=== PATIENT | male | born 1945 | race Caucasian/White ===

== ENCOUNTER 2022-04-07 15:25 | Outpatient (CLI) | payer MEDICARE, SELFPAY ==
--- NOTE | ~2022-04-07 | CT_ITS ---
EXAMINATION: CT LE RT wo con DATE: 04/07/2022 16:26 INDICATION: Right knee pain and osteoarthritis. Preoperative planning TECHNIQUE: High resolution computed tomography (CT) of the right lower limb from the hip through the foot was performed without intravenous contrast. Additional sagittal and coronal reconstructions were performed. Automated exposure control and iterative reconstruction technique were employed. The dose -length product was 1934.54 mGy-cm. COMPARISON: 01/08/2022 FINDINGS: Bone alignment is normal. Moderate osteoarthritis at the right hip with subarticular cystic changes a nd moderate size marginal osteophytes along the rim of the acetabulum. Severe medial compartment pred ominant osteoarthritis at the right knee. Small right knee joint effusion. A few loose osteochondral bodies within the popliteal recess. Additional mild to moderate polyarticular osteoarthritis at the r ight foot and ankle. Prominent enthesophytes throughout the bilateral feet and ankles including moder ate-sized bilateral Achilles and plantar calcaneal spurs. Large region of fatty atrophy of the centra l right rectus femoris muscle likely sequela of chronic insult. Small Guillen's cyst. Moderate fatty at rophy of the intrinsic musculature of the bilateral feet. Visualized portion of the pelvis is unremar kable. No pathologically enlarged pelvic or inguinal lymphadenopathy. IMPRESSION: 1. Severe medial compartment predominant tricompartmental osteoarthritis at the right knee. Reviewed, dictated and finalized at location A. DISPENSER
[2022-04-07 16:07] LABS: Hematocrit 44.3 % (42.0-52.0)
[2022-04-07 16:20] LABS: Urine Cotinine NEGATIVE
[2022-04-07 16:23] LABS: Albumin Level 4.2 g/dL (3.5-5.1); Estimated Glomerular Filt Rate > 60; Glucose 124 mg/dL (65-110)
[2022-04-07 17:07] LABS: Hemoglobin A1C 6.1 % (<5.7)
== END 2022-04-07 15:26 | disposition home or self-care (01) ==
LOC: ANHLAB 15:41
PROVIDERS: Visit Provider Orthopaedic Surgery
DX: Z01.818 Encounter for other preprocedural examination (principal); M17.11 Unilateral primary osteoarthritis, right knee
CPT/HCPCS: 73700; 80307; 82040; 82565; 82947; 83036; 85014; 85018

== ENCOUNTER 2022-04-15 14:18 | Outpatient (CLI) | payer MEDICARE, SELFPAY ==
--- NOTE | 2022-04-15 14:33 | ECG_ITS ---
Measurements Intervals Tate Rate: 82 P: 67 SC: 165 QRS: 23 QRSD: 106 T: 55 QT: 375 QTc: 439 Interpretive Statements SINUS RHYTHM NORMAL ECG NO PREVIOUS ECG AVAILABLE FOR COMPARISON Electronically Signed On 04-15-2022 15:14:02 CLIENT EXECUTIVE by Shree Trent D.O.
== END 2022-04-15 14:19 | disposition home or self-care (01) ==
PROVIDERS: Visit Provider Orthopaedic Surgery
DX: M17.11 Unilateral primary osteoarthritis, right knee (principal); Z01.818 Encounter for other preprocedural examination
CPT/HCPCS: 93005

== ENCOUNTER 2022-05-28 13:40 | Outpatient (CLI) | payer MEDICARE, SELFPAY ==
[2022-05-28 15:09] LABS: Basophils Absolute Auto 0.1 K/mm3 (0.0-0.1); Basophils Percent Auto 1.3 % (0.2-1.2); Eosinophils Absolute Auto 0.3 K/mm3 (0-0.3); Eosinophils Percent Auto 3.3 % (0-4.4); Hematocrit 42.8 % (42.0-52.0); Hemoglobin 14.3 g/dL (14.0-18.0); Immature Granulocyte Absolute 0.04 K/mm3 (0.00-0.031); Immature Granulocyte Percent A 0.4 % (0-0.5); Lymphocytes Absolute Auto 3.36 K/mm3 (0.9-3.2); Lymphocytes Percent Auto 32.9 % (18.3-44.2); Mean Corpuscular HGB Conc 33.4 g/dl (32-36); Mean Corpuscular Hemoglobin 30.8 pg (26-34); Mean Platelet Volume 9.9 fl (7.4-10.4); Monocytes Absolute Auto 0.8 K/mm3 (0.1-0.6); Neutrophils Absolute Auto 5.5 K/mm3 (1.3-6.7); Neutrophils Percent Auto 54.1 % (45.5-73.1); Platelet Count Result 324 k/mm3 (150-375); Red Blood Count 4.65 M/mm3 (4.6-6.20); Red Cell Distribution Width 13.6 % (11.5-14.5); White Blood Count 10.2 K/mm3 (4.5-10.0)
[2022-05-28 15:24] LABS: Estimated Glomerular Filt Rate > 60; Glucose 103 mg/dL (65-110)
[2022-05-28 15:31] LABS: Urine Cotinine NEGATIVE
[2022-05-28 15:37] LABS: Hemoglobin A1C 6.1 % (<5.7)
== END 2022-05-28 13:41 | disposition home or self-care (01) ==
PROVIDERS: Visit Provider Orthopaedic Surgery
DX: Z01.818 Encounter for other preprocedural examination (principal); M17.11 Unilateral primary osteoarthritis, right knee
CPT/HCPCS: 80307; 82040; 82565; 82947; 83036; 85025; 87081

== ENCOUNTER 2022-06-22 00:35 | Day surgery (SDC) | payer MEDICARE, SELFPAY ==
--- NOTE | 2022-05-28 13:42 | PC.NURSE ---
PRE-OP INSTRUCTIONS, PLEASE READ CAREFULLY Report to the Outpatient Waiting Room, entrance under the green pavilion located off [facility], at time _1000_ on date _06/22/22_. Planned Procedure Time: _1200_. PACK A SMALL OVERNIGHT BAG AND LEAVE IN THE CAR Time changes happen often and if your time is changed the preop area will call you the afternoon before. - You and your visitor will be asked to self-screen and do not enter if you have any COVID symptoms. - Only one visitor is requested with a max of two and NO children visitors are allowed at this time. - The patient visitor may be requested to leave or wait in car when not with patient due to distancing restrictions. - A mask is REQUIRED within the hospital. -VISITING HOURS 8AM-8PM Patients may have clear liquids (water, carbonated beverages, clear teas, apple juice) until 3 hours prior to surgery (0900 AM) with a maximum of 20 ounces. - No food from midnight until time of surgery Take the following medications with a SIP of water the morning of surgery: _NONE_ Medications to discontinue per DR. SOLIZ - _ASPIRIN, ADVIL (IBUPROFEN) 7 DAYS PRIOR TO SURGERY, Date to take last dose 06/14/22_ Medications to discontinue per ANESTHESIA - _VITAMINS/SUPPLEMENTS 3 DAYS PRIOR TO SURGERY, Date to take last dose 06/18/22_ Please no make-up, nail maltese, hairspray, perfume, deodorant, or body powder the day of surgery. No jewelry (including any body piercings) or valuables the day of surgery, leave them at home. Please take a shower or bath the night before, or the morning of, surgery with an antibacterial soap. Wear comfortable, loose fitting clothing. - Jewelry must be removed prior to entering the operating room. Rings and piercings that are not removed may be cut off. - The hospital will not accept responsibility for valuables. - Please leave all valuables, including medications, at home the day of surgery. If you are going home after surgery, a licensed driver utility worker must drive you home. - NO public transportation without another adult if you receive anesthesia. - We recommend that an adult stay with you for 24 hours following discharge. - We also recommend that you do not drive, make important decision, drink alcoholic beverages, or take any drugs that were not prescribed by your health care provider for at least 24 hours after your discharge time. Follow any additional instructions given to you from your surgeon. TOTAL JOINT CLASS 06/03/22 @ [address] [place] [address] - LOWER LEVEL If you or anyone in your household have experienced Covid symptoms in the past week, please notify your surgeon or the nurse liaison at the phone number below for possible testing. Instructions given to _PATIENT_and asked if any additional questions and then verbalized understanding. Patient advised to call surgeon office or pre surgery nurse liaison [phone] if any additional questions.
[2022-05-28 14:11] VITALS: BP 126/80; PULSE 90; RESP 20; TEMP 36.8; O2SAT 97; BMI 34.2
[2022-06-22] VITALS (15 sets, daily range): BP systolic 111–156; BP diastolic 61–91; PULSE 80–96; RESP 10–20; TEMP 36.2–37.3; O2SAT 94–100
--- NOTE | ~2022-06-22 | XR_ITS ---
EXAMINATION: XR knee RT 2V DATE: 06/22/2022 15:20 INDICATION: Postoperative evaluation following right total knee arthroplasty. TECHNIQUE: Anteroposterior and lateral views of the right knee were obtained. COMPARISON: 04/07/2022 FINDINGS: Right total knee arthroplasty with patellar resurfacing appears well seated and in near anatomic alig nment. No fractures identified. Expected postoperative subcutaneous and intra-articular gas. IMPRESSION: 1. Right total knee arthroplasty, negative for postoperative purposes. Reviewed, dictated and finalized at location B. R PIPE OFFBEARER
--- NOTE | 2022-06-22 08:14 | WPDANESEPPF ---
Anes - Initial Pre Proc Eval Procedure: Operation Date: 06/22/22 12:00 Proposed Procedures p Custom Right Total Knee Arthroplasty - Christiano Cruz MD Date/Time: 06/22/22 08:14 Surgeon: Christiano Cruz MD Pre Op Diagnosis: Prim O A Rt Knee Patient Data Age: 76 Gender: M Height: 1.85 m Weight: 117.5 kg Last Vital Signs Temp 36.8 C 05/28/22 14:11 Pulse 90 05/28/22 14:11 Resp 20 05/28/22 14:11 BP 126/80 05/28/22 14:11 Pulse Ox 97 05/28/22 14:11 O2 Del Method Room Air 05/28/22 14:11 Allergies Allergy/AdvReac Type Severity Reaction Status Date / Time No Known Allergies Allergy Unverified 05/28/22 15:26 Home Medications Medication Instructions Recorded Confirmed Type allopurinol 100 mg tablet 100 mg PO DAILY 11/18/21 05/28/22 History pravastatin 40 mg tablet 40 mg PO DAILY 11/18/21 05/28/22 History methylprednisolone 4 mg tablets in See Rx Instructions PO PER PKG DIR 04/03/22 05/28/22 Rx a dose pack (Medrol (Santosh)) #21 ea omega 5-jet-qxg-fish oil 60 mg-90 1 cap PO DAILY 04/03/22 05/28/22 History mg-500 mg capsule (Fish Oil) Chondro Flx 20 mg DAILY 05/28/22 05/28/22 History aspirin 325 mg tablet 325 mg PO DAILY 05/28/22 05/28/22 History cholecalciferol (vitamin D3) 25 25 mcg PO DAILY 05/28/22 05/28/22 History mcg (1,000 unit) capsule ibuprofen 200 mg tablet (Advil) 400 mg PO Q6H PRN Pain 05/28/22 05/28/22 History ECG: Date of Service: 04/15/22 Procedure(s): CA 12 lead EKG Accession Number(s): [id number] cc: ~ ? Measurements Intervals? [place]? Rate: ? 82 ? P:? 67 MA: ? 165? QRS:? 23 QRSD: ? 106? T:? 55 QT: ? 375? QTc:? 439? Interpretive Statements SINUS RHYTHM NORMAL ECG NO PREVIOUS ECG AVAILABLE FOR COMPARISON Electronically Signed On 04-15-2022 15:14:02 TIE SAWYER by Shree Trent D.O. Patient hx anesthesia problems: none Family hx anesthesia problems: none Results Review: All pre-operative results and documents have been reviewed as part of the pre-operative evaluation. [facility] Past Medical History Medical History (Updated 06/22/22 @ 08:15 by Rogelio Leavitt MD) Hypercholesterolemia Lumbar pain Obesity Primary osteoarthritis of right knee Surgical History Surgical History History of hernia surgery (~03/2016) Family History Family History Unknown Cancer Social History Social History (Updated 04/03/22 @ 09:52 by Paola Bradley MA) Smoking status: Former smoker Tobacco type: cigarettes Second hand tobacco smoke exposure: No Additional smoking assessment comments: STATES SMOKED SOME AGE 22 WHILE IN Alcohol intake: current Drinks per week: 4 Alcohol use details: Frequency Substance use: never Substance use type: does not use Lack of Transportation: No Lack of Food: Never True Current Housing: I Have Housing Concerned About Future Housing: No Difficulty Paying Gas/Electric Bills: No Difficulty Paying for Meds: No Currently Unemployed: No Education: High School Diploma/GED Difficulty w/ Childcare or Family Care: No Living arrangements: alone Spiritual care concerns: No Anes - Eval Final PreProcedure Day of Procedure 06/22/22 08:14 Patient weight: obese Heart: regular rate and rhythm Lungs: clear to auscultation and normal air movement Airway: Mallampati scale class II Neurological: alert and oriented Last oral intake: >/= 8 hours ASA classification: III Emergent: no Anesthetic plan: proceed Anesthesia type and monitoring: general LMA Results Review: All pre-operative results and docu
--- NOTE | 2022-06-22 10:23 | WPDANESPNB ---
Anes - Peripheral Nerve Block Date/Time: 06/22/22 10:23 I have discussed with the patient/family/POA the placement of a peripheral nerve block for post-operative pain management, including associated risks, benefits, complications, and side effects. Alternative methods of post-operative analgesia were detailed. Questions were solicited and answers provided to the satisfaction of the patient/family/POA. Time-Out: A pre-procedural Time-Out was completed immediately before starting the procedure and confirmed: Patient Identification, Site, Procedure, Patient Position and the Availability of Requisite Equipment. Clinical Indications: Acute post-operative pain management requested by the operative surgeon. Nerve Block Insertion Note Anes-nerve block: adductor canal right Patient position: supine Skin prep: chlorhexidine Needle: 22 gauge, stimulating, insulated echogenic needle. Needle length: 80 mm Technique: ultrasound Technique comment: in plane Injectate: bupivacaine 0.25% with epi 5 mcg/ml (30cc) Observations: tolerated well Complications: none Procedure start time:: 1210 Procedure end time:: 1215
--- NOTE | 2022-06-22 10:25 | SUR.PREOP ---
[address] dixon about scab to right knee,pt states ingrown hair which appeared 06/21/22,popped today. dr dixon states to proceed with surgery.
[2022-06-22] MEDS: ACETAMINOPHEN 500 MG TABLET 1000 MG PO (10:52)
[2022-06-22] MEDS: LACTATED RINGERS 1,000 ML 30 ML IV CONT ×2 (10:54→14:56)
[2022-06-22] MEDS: TRANEXAMIC ACID 1,000MG/ISO100 1,000 MG/100 ML BAG 200 MG IVPB (10:56)
--- NOTE | 2022-06-22 11:19 | SUR.PREOP ---
PT AWARE SURGEON DELAYED UNTIL 1215.
--- NOTE | 2022-06-22 12:11 | WPDHPUPDATE1 ---
History and Physical Update Update Date/Time: 06/22/22 12:11 History and Physical has been reviewed, including an updated exam of the patient. There are NO changes in the patient's condition. Risks, benefits, and alternatives have been discussed and questions answered. Patient agrees to proceed with procedure.
[2022-06-22] MEDS: ceFAZolin 2 GM/D5W 50 ML 2 GM/50 ML BAG IVPB ×2 (12:23→20:12)
[2022-06-22] MEDS: GENTAMICIN BONE CEMENT REFOBACIN 1 EACH TOPICAL (13:00)
[2022-06-22] MEDS: SODIUM CHLORIDE 0.9% IV 50 ML, TRANEXAMIC ACID 1,000 MG TOPICAL (14:32)
[2022-06-22] MEDS: fentaNYL CITRATE INJ (*CRX) 100 MCG/2 ML VIAL 25 MCG IV PUSH ×3 (15:05→17:22)
--- NOTE | 2022-06-22 15:47 | SUR.PHASEI ---
Simple mask removed at 9905.
--- NOTE | 2022-06-22 16:27 | SUR.PHASEI ---
Addendum entered by Yaquelin Andrews RN 06/22/22 17:00: 1605 Original Note: !605: Patient meets PACU discharge criteria, unit bed unavailable at this time. Patient placed in extended recovery status.
[2022-06-22] MEDS: ONDANSETRON INJ 4 MG/2 ML VIAL IV PUSH ×2 (16:40→19:09)
--- NOTE | 2022-06-22 18:02 | P.OP_ITS ---
Procedure Note - Detailed Date of Procedure 06/22/22 Pre-op Diagnosis Prim O A Rt Knee Post-op Diagnosis Same Procedure Performed Total knee arthroplasty, right Surgeon Christiano Cruz MD Keying Machine Operator Shana Langley PA-C Anesthesia General and Regional (Subsartorial block.) Findings Good bone quality. Mild medial release. Description of Procedure Preoperative antibiotics were given. The limb was prepped and draped in the usual sterile fashion with a well-padded tourniquet high on the thigh. The limb was exsanguinated and the tourniquet inflated to 300 mmHg. A longitudinal incision was created just medial to the patella. A trivector approach to the knee was performed. Arthrotomy was taken down through the joint capsule. No significant releases were initially taken. The femur was exposed and the F1 jig was applied. The coring tool was used to remove the cartilage for the F2 jig to sit flush with the bone. The jig was pinned and the distal cut carefully taken. Caliper measurements confirmed appropriate bony resections according to the preoperative templated plan. The F4 cutting jig for the femur was applied, at the standard rotation. The AP and anterior chamfer cuts were taken. The F5 jig was applied and the posterior chamfer cuts were taken. The tibia was prepared using the T1 jig, after removing cartilage for the jig contact points. Proper alignment was checked with the alignment karyna. The tibia was cut using the T1u guide. Gap balancing was performed. Gap measurements were taken and the knee was trialed. Excellent alignment and soft tissue balancing was confirmed. The posterior cruciate ligament was resected. The patella was cut for resurfacing. Three lug holes were drilled. Meniscal remnants were removed. The trial components were assembled. Excellent range of motion and proper soft tissue balancing were confirmed throughout the full range of motion. Patellar tracking was excellent. The knee was copiously irrigated periodically throughout the procedure. The real implants were cemented into position. Excess cement was carefully removed. The wound was closed in layers with interrupted #1 Vicryl suture, 2-0 strata fix suture, 0 strata fix suture, 2-0 strata fix suture. Steri-Strips placed on the skin with the knee flexed. Sterile bulky dressing applied. The patient was brought to the recovery room in stable condition. There were no complications. Physician health center assistant, Shana Pisarski, PA-C, required for surgery; including patient positioning, draping, tissue retraction, maintaining instrument position, wound closure, and dressing placement. Implants Conformis imprint total knee arthroplasty. Cemented. Posterior stabilized. 10mm insert. 41 mm oval patella. Estimated Blood Loss -100.0 Drains No Complications No immediate complications Condition Stable Disposition PACU [facility] Billing Surgery - Charge Forward: Surgery Billing
--- NOTE | 2022-06-22 18:10 | ADMGEN ---
This patient, Rex Petersen, was admitted to Medical Room 346-01. Patient/family oriented to hospital policies and general routines including ID bracelet, bed and alarms, visiting hours, pain management, procedures, bathroom and other care routines, personal items, smoking policy, room service/diet, and visiting hours. Information on how to activate the Rapid Response Team has been discussed. Patient/Family are encouraged to report perceived risks to care and to ask questions if they do not understand what they are told or what they should do.
[2022-06-22] MEDS: SODIUM CHLORIDE 0.9% IV 1,000 ML 125 ML IV CONT (19:08)
[2022-06-22] MEDS: SENNA/DOCUSATE SODIUM TABLET 2 TAB PO (20:11)
[2022-06-22] MEDS: FAMOTIDINE 20 MG TABLET PO (20:12)
[2022-06-23] MEDS: ONDANSETRON INJ 4 MG/2 ML VIAL IV PUSH ×3 (00:47→13:24)
--- NOTE | 2022-06-23 01:00 | PC.NURSE ---
Pt stood wt stood weight bearing at side of bed
[2022-06-23 03:31] VITALS: BP 128/80; PULSE 78; RESP 20; TEMP 36.7; O2SAT 100
[2022-06-23] MEDS: ceFAZolin 2 GM/D5W 50 ML 2 GM/50 ML BAG IVPB ×2 (04:02→13:24)
[2022-06-23 06:00] LABS: Basophils Absolute Auto 0.1 K/mm3 (0.0-0.1); Basophils Percent Auto 0.8 % (0.2-1.2); Eosinophils Absolute Auto 0.2 K/mm3 (0-0.3); Eosinophils Percent Auto 1.5 % (0-4.4); Hematocrit 36.2 % (42.0-52.0); Hemoglobin 11.8 g/dL (14.0-18.0); Immature Granulocyte Absolute 0.04 K/mm3 (0.00-0.031); Immature Granulocyte Percent A 0.4 % (0-0.5); Lymphocytes Absolute Auto 2.32 K/mm3 (0.9-3.2); Lymphocytes Percent Auto 21.4 % (18.3-44.2); Mean Corpuscular HGB Conc 32.6 g/dl (32-36); Mean Corpuscular Hemoglobin 30.4 pg (26-34); Mean Corpuscular Volume 93.3 fl (80-100); Monocytes Absolute Auto 0.9 K/mm3 (0.1-0.6); Neutrophils Absolute Auto 7.4 K/mm3 (1.3-6.7); Neutrophils Percent Auto 67.9 % (45.5-73.1); Platelet Count Result 218 k/mm3 (150-375); Red Blood Count 3.88 M/mm3 (4.6-6.20); Red Cell Distribution Width 13.6 % (11.5-14.5); White Blood Count 10.8 K/mm3 (4.5-10.0)
[2022-06-23 06:09] LABS: Anion Gap 4 mmol/L (8-16); Blood Urea Nitrogen 12 mg/dL (9-20); Calcium 7.9 mg/dL (8.4-10.2); Carbon Dioxide 29 mmol/L (22-30); Chloride 105 mmol/L (98-107); Estimated CRCL calculation 91 ml/min; Estimated Glomerular Filt Rate > 60; Glucose 104 mg/dL (65-110); Sodium 138 mmol/L (137-145)
[2022-06-23 07:31] VITALS: BP 122/74; PULSE 74; RESP 18; TEMP 36.8; O2SAT 99
[2022-06-23] MEDS: FAMOTIDINE 20 MG TABLET PO (08:16)
[2022-06-23] MEDS: SENNA/DOCUSATE SODIUM TABLET 2 TAB PO (08:16)
[2022-06-23] MEDS: ASPIRIN 325 MG TABLET PO (08:17)
[2022-06-23] MEDS: allopurinoL 100 MG TABLET PO (08:17)
[2022-06-23 09:20] VITALS: BP 126/80; PULSE 66; RESP 18; TEMP 36.6; O2SAT 98
--- NOTE | 2022-06-23 09:34 | WPDANESPN ---
Anes - Prog Note Post-Op Date/Time: 06/23/22 09:34 Cardiovascular status: normal Respiratory status: normal Airway patency: baseline Mental status: baseline Post-Op hydration status: normal Vital Signs: Last Vital Signs Temp 36.6 C 06/23/22 09:20 Pulse 66 06/23/22 09:20 Resp 18 06/23/22 09:20 BP 126/80 06/23/22 09:20 Pulse Ox 98 06/23/22 09:20 O2 Del Method Room Air 06/22/22 20:00 O2 Flow Rate 6 06/22/22 15:40 Pain Score (VAS): 07/10 I/O: Intake & Output 06/22/22 06/23/22 06/23/22 23:59 07:59 15:59 Intake Total 950 100 Balance 950 100 Laboratory Tests 06/23/22 05:43 06/23/22 05:43 06/22/22 06/23/22 06/23/22 10:23 05:43 05:43 WBC 10.8 H RBC 3.88 L Hgb 11.8 L Hct 36.2 L MCV 93.3 MCH 30.4 MCHC 32.6 RDW 13.6 Plt Count 218 MPV 10.0 Immature Gran % (Auto) 0.4 Neut % (Auto) 67.9 Lymph % (Auto) 21.4 Cherry % (Auto) 8.0 Eos % (Auto) 1.5 Baso % (Auto) 0.8 Lymph # (Auto) 2.32 Cherry # (Auto) 0.9 H Eos # (Auto) 0.2 Baso # (Auto) 0.1 Abs Immat Gran (auto) 0.04 H Absolute Neuts (auto) 7.4 H Absolute Nucleated RBC 0.0 Nucleated RBC % 0.0 Sodium 138 Potassium 4.0 Chloride 105 Carbon Dioxide 29 Anion Gap 4 L BUN 12 Creatinine 0.80 Estim Creat Clear Calc 91 Estimated GFR > 60 Glucose 104 Calcium 7.9 L Blood Type A Negative Antibody Screen Negative Post-procedural complaints: nausea (moderate post op, improved today) Patient Feedback: Patient satisfied with anesthetic care.
--- NOTE | 2022-06-23 09:34 | PM.DS ---
DS: Admitting Diagnosis Discharge Date 06/23/21 Admitting Diagnosis OA knee Right DS: Discharge Diagnosis Discharge Diagnosis (1) Status post total right knee replacement: Code(s): Z96.651 - Presence of right artificial knee joint Status: Acute Assessment and Plan: Postop day 1: Right total knee arthroplasty. Patient tolerated procedure well. No complications. Pain manageable with pain medication. No numbness or tingling. We had a lengthy discussion regarding postoperative wound care, limitations, expectations, and exercises. Patient shows good understanding. He has had initial physical therapy and is tolerating it well. DVT prophylaxis: continue full dose aspirin. Pain medication: Percocet. Antibiotic: Keflex Patient has followup appointment with Dr. Cruz in 3 weeks. DS: Summary Hospital Course Reason for hospitalization: Total knee arthroplasty Hospital Course: Patient tolerated procedure well. Has had initial PT/OT. No complications. Pain well managed. Status at Discharge Functional status at discharge: uses cane/walker Overall status at discharge: patient is progressing back to baseline Time Spent with Patient Time attestation: Total time spent providing and/or coordinating discharge services: Exam Narrative: Overweight 76 y.o Male. Resting comfortably in chair. No acute distress. A&O x3. Wearing compression socks bilaterally. Dressing intact with no drainage. Moderate swelling. No ecchymosis. No erythema. No hematoma. Good early range of motion. Calf nontender. Neurologic status intact. No varicosities. Distal pulses palpable. DS: Data Data Completed and Pending Labs on day of discharge: Labs from last 24 hours 06/23/22 06/23/22 06/22/22 05:43 05:43 10:23 WBC 10.8 H RBC 3.88 L Hgb 11.8 L Hct 36.2 L MCV 93.3 MCH 30.4 MCHC 32.6 RDW 13.6 Plt Count 218 MPV 10.0 Immature Gran % (Auto) 0.4 Neut % (Auto) 67.9 Lymph % (Auto) 21.4 [place] % (Auto) 8.0 Eos % (Auto) 1.5 Baso % (Auto) 0.8 Lymph # (Auto) 2.32 [place] # (Auto) 0.9 H Eos # (Auto) 0.2 Baso # (Auto) 0.1 Abs Immat Gran (auto) 0.04 H Absolute Neuts (auto) 7.4 H Absolute Nucleated RBC 0.0 Nucleated RBC % 0.0 Sodium 138 Potassium 4.0 Chloride 105 Carbon Dioxide 29 Anion Gap 4 L BUN 12 Creatinine 0.80 Estim Creat Clear Calc 91 Estimated GFR > 60 Glucose 104 Calcium 7.9 L Blood Type A Negative Antibody Screen Negative Discharge Plan Discharge Patient Disposition: Home, Self-Care Discharge Instructions: See green instruction sheets Stand Alone Forms: General Discharge Instructions Follow-up/Referrals: Shana Langley PA [Physician Electrical Prospecting Engineer] - Discharge Medications: New oxycodone-acetaminophen 5-325 mg tablet 1 - 2 tablet PO Q4-6H MDD 6 PRN (Reason: pain) Qty: 30 0RF cephalexin 500 mg capsule 500 mg PO BID 10 Days Qty: 20 0RF Rx Instructions: Take twice a day for 10 days. Continued omega 2-bfg-gwe-fish oil [Fish Oil] 60-90-500 mg capsule 1 cap PO DAILY allopurinol 100 mg tablet 100 mg PO DAILY pravastatin 40 mg tablet 40 mg PO DAILY aspirin 325 mg Tablet 325 mg PO DAILY ibuprofen [Advil] 200 mg Tablet 400 mg PO Q6H PRN (Reason: Pain) cholecalciferol (vitamin D3) 25 mcg (1,000 unit) Capsule 25 mcg PO DAILY Chondro Flx 20 mg DAILY
--- NOTE | 2022-06-23 10:01 | PCOTNOTE ---
Attempted to see. Pt. nauseous and light headed, request return later. Nursing aware.
[2022-06-23] MEDS: polyethylene glycoL 3350 17 GM POWD.PACK PO (10:12)
[2022-06-23] MEDS: PRAVASTATIN SODIUM 20 MG TABLET 40 MG PO (10:12)
[2022-06-23] MEDS: predniSONE 5 MG TABLET PO (10:12)
[2022-06-23 11:31] VITALS: BP 116/86; PULSE 75; RESP 18; TEMP 36.8; O2SAT 97
== END 2022-06-23 16:00 | disposition home or self-care (01) ==
LOC: ANHSURGERY 14:09 → ANH3MED 17:48
PROVIDERS: Physician Assistant Surgical; Visit Provider Orthopaedic Surgery
PROC: (CPT 27447; principal; 2022-06-22 12:00)
DX: M17.11 Unilateral primary osteoarthritis, right knee (principal); G89.18 Other acute postprocedural pain; E78.00 Pure hypercholesterolemia, unspecified; Z79.82 Long term (current) use of aspirin; E66.9 Obesity, unspecified; Z68.32 Body mass index [BMI] 32.0-32.9, adult
CPT/HCPCS: 27447; 64447; 36415; 73560; 80048; 85025; 86850; 86900; 86901; 97110; 97116; 97161; 97165; 97530; A9270; C1713; C1776; J0131; J0171; J0690; J1100; J1170; J1885; J2250; J2270; J2370; J2405; J2704; J2795; J3010; J7030; J7120; J7512

== ENCOUNTER 2024-02-25 08:43 | Outpatient (CLI) | payer MEDICARE, SELFPAY ==
--- NOTE | ~2024-02-25 | XR_ITS ---
XR knee LT min 4V 02/25/2024 09:14 Indication: Left knee pain Procedure: 5 views left knee Comparison: 02/05/2023 Findings: There is severe osteoarthritis of the left knee with varus angulation. No fracture or traum atic malalignment. There is moderate joint effusion. Impression: 1: Severe osteoarthritis of the left knee with varus angulation. 2: Moderate joint effusion. Reviewed, dictated and finalized at location B. Impression: 1: Severe osteoarthritis of the left knee with varus angulation. 2: Moderate joint effusion.
== END 2024-02-25 08:44 | disposition home or self-care (01) ==
LOC: ANHIMG 08:51
PROVIDERS: Visit Provider Orthopaedic Surgery
DX: M17.12 Unilateral primary osteoarthritis, left knee (principal); M25.462 Effusion, left knee; M21.162 Varus deformity, not elsewhere classified, left knee
CPT/HCPCS: 73564

== ENCOUNTER 2024-05-09 12:12 | Outpatient (CLI) | payer MEDICARE, SELFPAY ==
[2024-05-09 12:54] LABS: Hematocrit 43.6 % (42.0-52.0); Hemoglobin 14.4 g/dL (14.0-18.0)
[2024-05-09 13:03] LABS: Albumin Level 4.2 g/dL (3.5-5.1); Estimated Glomerular Filt Rate > 60; Glucose 111 mg/dL (65-110)
== END 2024-05-09 12:13 | disposition home or self-care (01) ==
PROVIDERS: Visit Provider Orthopaedic Surgery
DX: M17.12 Unilateral primary osteoarthritis, left knee (principal); E78.00 Pure hypercholesterolemia, unspecified
CPT/HCPCS: 36415; 82040; 82565; 82947; 85014; 85018

== ENCOUNTER 2024-07-25 00:23 | Day surgery (SDC) | payer MEDICARE, SELFPAY ==
--- NOTE | 2024-07-03 09:55 | PC.NURSE ---
Report to the Outpatient Waiting Room, entrance under the green pavilion located off [facility], at time 6 am on date _07/25/24 . Planned Procedure Time: _7:30 am .? Time changes happen often and if your time is changed the preop area will call you the afternoon before. - You and your visitor will be asked to self-screen and do not enter if you have any COVID symptoms. Please call surgeon if you need to reschedule. - A mask is optional within the hospital at this time. Patients may have clear liquids (water, carbonated beverages, clear teas, apple juice) until 3 hours prior to surgery( 4:30 AM) with a maximum of 20 ounces. - No food from midnight until time of surgery and no smoking. This includes no chewing gum, candy or mints. Take only the following medications with a SIP of water on the morning of surgery: ___AMLODIPINE DO NOT STOP ANY OF YOUR OTHER PRESCRIPTION MEDICATIONS PRIOR TO SURGERY EXCEPT THE FOLLOWING Medications to discontinue per physician HOLD ASPIRIN 7 DAYS PRE OP PER DR SOLIZ LAST DOSE07/17/24 TOTAL JOINT CLASS 07/05/24 AT 10 AM Please no make-up, nail korean, hairspray, perfume, deodorant, or body powder the day of surgery.? No jewelry (including any body piercings) or valuables the day of surgery, leave them at home.? Please take a shower or bath the night before, or the morning of, surgery with an antibacterial soap.? Wear comfortable, loose fitting clothing.? Children are encouraged to wear pajamas. - Jewelry must be removed prior to entering the operating room.? Rings and piercings that are not removed may be cut off. - The hospital will not accept responsibility for valuables.? - Please leave all valuables, including medications, at home the day of surgery. If you are going home after surgery, a licensed reefer truck driver must drive you home.? - NO public transportation without another adult if you receive anesthesia. - We recommend that an adult stay with you for 24 hours following discharge. - We also recommend that you do not drive, make important decision, drink alcoholic beverages, or take any drugs that were not prescribed by your health care provider for at least 24 hours after your discharge time. Hold all vitamins and supplements for 3 days per anesthesiologist.-LAST DOSE 07/21/24 Follow any additional instructions given to you from your surgeon. VERBAL AND WRITTEN instructions given to _PATIENT and asked if any additional questions and then verbalized understanding. Patient advised to call surgeon office or pre surgery nurse liaison [phone] if any additional questions.
[2024-07-03 10:19] VITALS: BMI 32.1
[2024-07-03 11:18] VITALS: BP 132/80; PULSE 74; RESP 18; TEMP 36.9; O2SAT 97
[2024-07-25] VITALS (15 sets, daily range): BP systolic 117–151; BP diastolic 66–94; PULSE 78–92; RESP 12–19; TEMP 36.2–37.4; O2SAT 92–99
--- NOTE | ~2024-07-25 | XR_ITS ---
EXAMINATION: [id number] DATE: 07/25/2024 10:09 INDICATION: Postoperative evaluation following left total knee arthroplasty. TECHNIQUE: Anteroposterior and lateral views of the left knee were obtained. COMPARISON: None. FINDINGS: Left total knee arthroplasty with patellar resurfacing appears well seated and in near anatomic align ment. No fractures identified. Expected postoperative subcutaneous and intra-articular gas. IMPRESSION: 1. Left total knee arthroplasty, negative for postoperative purposes. Reviewed, dictated and finalized at location B. AL TECHNICIAN
--- OUTSIDE RECORDS SUMMARY | 2024-07-25 00:26 | XMS_ITS | Clinical Summary ---
Author Organization [facility] Address [address] [place] [address] Care Team Providers Care Basting Puller Name Role Phone [facility], Sha Gibson Primary Care Pro vider Allergies No known active allergies Medications aspirin 81 mg tablet take 1 tablet by oral route every day 0 0 6 Active Additional Information Patient taking differently:81 mgoral Daily, Reported on 08/27/2017 allopurinol (ZYLOPRIM) 100 mg tablet take 1 Tablet (100MG) by ORAL route every day 90 4 2 Active Additional Information Patient taking differently:100 mgoral Daily, Reported on 08/27/2017 cholecalciferol (VITAMIN D3) 400 unit capsule take 1 by Oral route every day 0 2 Active pravastatin (PRAVACHOL) 40 mg tablet take 1/2 by oral route every day 90 4 2 Active Additional Information Patient taking differently: 20 mg oral Daily, Reported on 08/27/2017 hydrocortisone (ANUSOL-HC) 2.5 % cream apply by topical route 2 times every day to the affected area(s) 1 Tube 2 2 Active omega-3 fatty acids 1,000 mg capsule Take by mouth. Activ e Active Problems Problem Noted Date Diagnosed Date Exomphalos 01/15/2016 Overview (09/04/2016): Umbilical hernia Hyperlipidemia 05/09/2012 Overview (09/02/2016): HYPERLIPIDEMIA NEC/NOS Gout 05/09/2012 Overview (09/03/2016): Gout Immunizations Immunization Administration Dates Next Due Influenza, Trivalent, IM (NADIRA) 07/06/2011 Surgical History Surgery Date Site/Laterality Comments TONSILLECTOMY 05/31/1968 - 05/30/1969 Tonsillectomy APPENDECTOMY 05/31/1960 - 05/30/1961 Appendectomy OTHER SURGICAL HISTORY DaVinci ventral hernia repair COLONOSCOPY 05/31/2012 - 05/30/2013 POLYPECTOMY HERNIA REPAIR Medical History Medical History Date Comments Hyperlipidemia Hyperlipidemia Hx Other Medical gout; Comments: GDS 01/15/2016 - Hx Other Medical 01/15/2016 poison angela; Com ments: GIO 01/15/2016 - Colon polyp Family History Medical History Relation Name Comments Lymphoma Father Cancer -lymphom a; Cause of : Cancer -lymphoma Diabetes Maternal Grandmother Diabete s mellitus; Other Other 1 No family histo ry of Coronary artery disease; Other Other 2 No family histo ry of Stroke; Cancer Paternal Grandfather Cancer, unknown; Cause of : Cancer, unknown Cancer Paternal Grandmother Cancer, unknown; Cause of : Cancer, unknown Colon cancer Sister Cancer, colon; Relation Name Status Comments Father (Age 69) Maternal Grandmother Other 1 Other 2 Paternal Grandfather Paternal Grandmother Sister Social History Tobacco Use Types Packs/Day Years Used Date Smoking Tobacco: Former Alcohol Use Standard Drinks/Week Comments Yes 0 (1 standard drink = 0.6 oz pur e alcohol) Personal Safety Answer Date Recorded Getting School Help Needed Not on file 07/30 Sex and Gender Information Value Date Recorded Sex Assigned at Not on file 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 Gender Identity Not on file Sexual Orientation Not on file Obstetrics History Last Filed Vital Signs Vital Sign Reading Time Taken Comments Blood Pressure 130/81 01/14/2021 10:06 AM CDT Pulse 76 01/14/2021 10:06 AM CDT Temperature 36.7 C (98.1 F) 08/27/2017 10:16 AM CDT Respiratory Rate 18 08/27/2017 10:16 AM CDT Oxygen Saturation 100% 08/27/2017 10:16 AM CDT Inhaled Oxygen Concentration - - Weight 113.4 kg (250 lb) 01/14/2021 10:06 AM CDT Height 185.4 cm (6' 1 ) 01/14/2021 10:06 AM CDT Body Mass Index 32.98 01/14/2021 10:06 AM CDT Plan of Treatment Not on file Insurance [employer] Advance Directives For more information, please contact: [phone] * Full Code (Latest Code Status on File) Date Activated Date Inactivated Comments 08/27/2017 7:59 AM 08/27/2017 1:03 PM Care Teams Basting Puller Relationship Specialty Start Date End Date [facility], Sha Gibson [address] [place] [address] PCP - General Genetics 12/11/20
--- OUTSIDE RECORDS SUMMARY | 2024-07-25 00:26 | XMS_ITS | Referral Summary ---
Author Organization [facility] Address [address] [place] [address] Care Team Providers Care Wheel Of Fortune Dealer Name Role Phone [facility], Sha Gibson Primary Care Pro vider Allergies [...] Administration Dates Next Due Influenza, Trivalent, IM (MDV) 07/06/2011 Social History Tobacco Use Types Packs/Day Years Used Date Smoking Tobacco: Former Alcohol Use Standard Drinks/Week Comments Yes 0 (1 standard drink = 0.6 oz pur e alcohol) Personal Safety Answer Date Recorded Getting School Help Needed Not on file 07/30 Sex and Gender Information Value Date Recorded Sex Assigned at Not on file 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
--- OUTSIDE RECORDS SUMMARY | 2024-07-25 00:26 | XMS_ITS | Clinical Summary ---
Author Organization [facility] Address [address] [place] [address] Phone Care Team Providers Care Rock Drill Operator Name Role Phone Omar Encinas MD Primary Care Provide r Unavailable Allergies No known active allergies Medications allopurinol (ZYLOPRIM) 100 MG Tablet Take 100 mg by mouth daily. Active citalopram (CELEXA) 40 MG Tablet Take 40 mg by mouth daily. Active pravastatin (PRAVACHOL) 40 MG Tablet Take 40 mg by mouth daily. Active Cholecalciferol 50 mcg Tablet Take by mouth. A ctive diphenhydrAMINE (BENEDRYL) 12.5 MG/5ML Liquid Take 12.5 mg by mouth every 6 hours as needed. Active azithromycin (ZITHROMAX) 250 MG TabletIndicatio ns:Bronchitis 2 tab(s) daily for 1 day, then 1 tab(s) daily for days 2-5. 6 Tab 0 Active predniSONE (DELTASONE) 10 MG TabletIndicatio ns:Bronchitis Take 4 tab PO daily x 2 days, 3 tab PO daily x 2 days, 2 tab PO daily x 2 day, 1 tab PO daily x 2 days. 20 Tab 0 Active guaiFENesin-cod eine (CHERATUSSIN AC) 100-10 MG/5ML SyrupIndication s:Cough Take 5 mL by mouth every 4 hours as needed for Cough. 120 mL 0 Active albuterol (PROAIR HFA) 108 (90 Base) MCG/ACT Aerosol SolutionIndicat ions:Bronchitis take 2 Puffs by inhalation every 4 hours as needed for Wheezing or Cough. 1 Inhaler 0 Active acetaminophen (Tylenol) 325 MG Tablet Take 325 mg by mouth every 4 hours as needed. Active aspirin 325 MG Tablet Take 325 mg by mouth daily. Active Active Problems No known active problems Immunizations Immunization Administration Dates Next Due Covid-19, Mrna, Lnp-s, Pf, 30 Mcg/0.3 Ml Dose (P fizer) 07/01/2020,06/10/2020 Influenza Vaccine greater than 3 yrs 04/12/2019 Influenza, High-dose, Quadrivalent 04/11/2020 Influenza, Seasonal, Injectable, Undefined 04/12 Influenza, Trivalent, Adjuvanted, PF 07/06/2011 Social History Tobacco Use Types Packs/Day Years Used Date Smoking Tobacco: Never Smokeless Tobacco: Never Alcohol Use Standard Drinks/Week Comments Yes 0 (1 standard drink = 0.6 oz pur e alcohol) 0-4 a week Sex and Gender Information Value Date Recorded Sex Assigned at Not on file Legal Sex Male 4:55 PM CDT Gender Identity Not on file Sexual Orientation Not on file Last Filed Vital Signs Vital Sign Reading Time Taken Comments Blood Pressure 110/70 10/06/2020 2:05 PM CDT Pulse 84 10/06/2020 2:05 PM CDT Temperature 36.3 C (97.4 F) 10/06/2020 2:05 PM CDT Respiratory Rate 18 10/06/2020 2:05 PM CDT Oxygen Saturation 96% 10/06/2020 2:05 PM CDT Inhaled Oxygen Concentration - - Weight 108.9 kg (240 lb) 10/06/2020 2:05 PM CDT Height 185.4 cm (6' 1 ) 10/06/2020 2:05 PM CDT Body Mass Index 31.66 10/06/2020 2:05 PM CDT Plan of Treatment Health Maintenance Due Date Last Done Comments Hepatitis C Virus (HCV) Screening 1945 TdaP Immunization 1945 Pneumococcal Immunization (5 0+ years) (1 of 1 - PCV) 1996 Zoster Immunization (1 of 2) 1996 Respiratory Syncytial Virus (RSV) Immunization (Adult) (1 - 1-dose 75+ series) 2021 Influenza Immunization (#1) 01/30/202403/31, 04/12/2019, 07/06/2011 SARS-COV-2 Immunization (3 - 2024-25 season) 2024 07/01/2020, 06/10/2020 Hepatitis B Immunization Aged Out No longer eligible based on patient's age to complete this topic Meningococcal Immunization (ACWY) Aged Out No longer eligible b ased on patient's age to complete this topic Rotavirus Immunization Aged Out No lo nger eligible based on patient's age to complete this topic Insurance MEDICARE Care Teams Rock Drill Operator Relationship Specialty Start Date End Date Omar Encinas MD PCP - General General Surgery 08/11/19
[2024-07-25] MEDS: TRANEXAMIC ACID 1,000MG/ISO100 1,000 MG/100 ML BAG 200 MG IVPB (06:45)
[2024-07-25] MEDS: ACETAMINOPHEN 500 MG TABLET 1000 MG PO (06:45)
[2024-07-25] MEDS: LACTATED RINGERS 1,000 ML 30 ML IV CONT ×3 (06:45→11:00)
--- NOTE | 2024-07-25 06:59 | WPDANESEPPF ---
Anes - Initial Pre Proc Eval Procedure: Operation Date: 07/25/24 07:30 Proposed Procedures p Left Total Knee Arthroplasty - Christiano Cruz MD Date/Time: 07/25/24 06:59 Surgeon: Christiano Cruz MD Pre Op Diagnosis: primary oa left knee Patient Data Age: 78 Gender: M Height: 1.85 m Weight: 110.4 kg Last Vital Signs Temp 36.9 C 07/03/24 11:18 Pulse 74 07/03/24 11:18 Resp 18 07/03/24 11:18 BP 132/80 07/03/24 11:18 Pulse Ox 97 07/03/24 11:18 O2 Del Method Room Air 07/03/24 11:18 Allergies Allergy/AdvReac Type Severity Reaction Status Date / Time No Known Allergies Allergy Verified 07/03/24 10:21 Home Medications ?Medication ?Instructions ?Recorded ?Confirmed ?Type allopurinol 100 mg tablet 100 mg PO DAILY 11/18/21 07/03/24 History pravastatin 40 mg tablet 40 mg PO DAILY 11/18/21 07/03/24 History omega 6-eov-ekz-fish oil 60 mg-90 1 cap PO DAILY 04/03/22 07/03/24 History mg-500 mg capsule (Fish Oil) cholecalciferol (vitamin D3) 25 25 mcg PO DAILY 05/28/22 07/03/24 History mcg (1,000 unit) capsule acetaminophen 500 mg tablet 1,000 mg PO Q6H PRN pain 07/03/24 07/03/24 History (Acetaminophen Pain Relief) amlodipine 5 mg tablet (Norvasc) 5 mg PO DAILY 07/03/24 07/03/24 History aspirin 325 mg capsule 325 mg PO DAILY 07/03/24 07/03/24 History triamcinolone acetonide 0.1 % 1 applic topical BID 07/03/24 07/03/24 History topical cream Laboratory Tests 07/25/24 06:41 Blood Type Pending Antibody Screen Pending Patient hx anesthesia problems: none Family hx anesthesia problems: none Results Review: All pre-operative results and documents have been reviewed as part of the pre-operative evaluation. [facility] Past Medical History Medical History (Updated 07/25/24 @ 07:00 by Emmanuel Larkin DO) Hypertension Hyperlipidemia Obesity Hypercholesterolemia Lumbar pain Primary osteoarthritis of right knee Surgical History Surgical History History of total right knee replacement (~06/22/22) History of hernia surgery (~03/2016) Family History Family History Unknown Cancer Social History Social History (Updated 02/25/24 @ 10:43 by Jenn Hernandez CMA) Smoking status: Former smoker Tobacco type: cigarettes Second hand tobacco smoke exposure: No Additional smoking assessment comments: STATES SMOKED SOME AGE 22 WHILE IN Alcohol intake: current Drinks per week: 4 Alcohol use details: Frequency Substance use: never Substance use type: does not use Do You Feel Safe in your Home?: Yes Lack of Transportation: No Lack of Food: Never True Current Housing: I Have Housing Concerned About Future Housing: No Difficulty Paying Gas/Electric Bills: No Difficulty Paying for Meds: No Currently Unemployed: No Education: High School Diploma/GED Difficulty w/ Childcare or Family Care: No Living arrangements: alone Spiritual care concerns: No Anes - Eval Final PreProcedure Day of Procedure 07/25/24 06:59 Patient weight: obese Heart: regular rate and rhythm Lungs: clear to auscultation Airway: Mallampati scale class II Neurological: alert and oriented Last oral intake: >/= 8 hours ASA classification: III Emergent: no Anesthetic plan: proceed Anesthesia type and monitoring: general LMA and standard monitoring Results Review: All pre-operative results and documents have been reviewed as part of the pre-operative evaluation. Informed Consent: The patient's anesthetic plan and its attendant risks and benefits were discussed with the patient/family/POA. Questions were solicited and answers provided to the satisfaction of the patient/family/POA.
--- NOTE | 2024-07-25 07:30 | WPDHPUPDATE1 ---
History and Physical Update Update Date/Time: 07/25/24 07:30 History and Physical has been reviewed, including an updated exam of the patient. There are NO changes in the patient's condition. Risks, benefits, and alternatives have been discussed and questions answered. Patient agrees to proceed with procedure.
[2024-07-25] MEDS: ceFAZolin 2 GM/D5W 50 ML 2 GM/50 ML BAG IVPB (07:36)
[2024-07-25] MEDS: SODIUM CHLORIDE 0.9% IV 37.7 ML, MORPHINE SULFATE INJ (*CRX) 2 MG, ROPivacaine HCL 1% 2... INFILTRATE (08:19)
[2024-07-25] MEDS: GENTAMICIN BONE CEMENT REFOBACIN 1 EACH TOPICAL (09:14)
[2024-07-25] MEDS: TRANEXAMIC ACID 1,000 MG/10 ML AMPUL 1000 MG IV PUSH (09:16)
--- NOTE | 2024-07-25 09:50 | W.PM.PROC2 ---
Procedure Note - Detailed Date of Procedure 07/25/24 Pre-op Diagnosis Left knee degenerative arthritis. Post-op Diagnosis Same Procedure Performed Calipered, kinematically aligned total knee replacement left knee. Surgeon Christiano Cruz MD Educational Aid Shana Langley PA-C Anesthesia General Indications Severe varus arthritis. 15 degree preop flexion contracture. Findings According to the calipered kinematic alignment principles, the knee was balanced by the following verification checks incorporating 6 caliper measurements, using an insert goniometer to select the insert thickness, and adjusting the tibial resection following the kinematic alignment algorithm (see figure 160.10 published in [employer] chapter on kinematic alignment total knee arthroplasty.) The steps verified the femoral and tibial components were kinematically aligned coincident to the patient's pre arthritic joint lines, which closely restored the [place] tibial compartment forces and ligament laxities without ligament release. The [employer] SperiKA knee, designed specifically for kinematic alignment, fit optimally. The record of verification checks were documented and scanned into the chart. Distal Femoral Resection: Distal Medial 6 mm(cartilage worn), Distal Lateral 8 mm Target thickness of 8mm Unworn, 6mm Worn (No Cartilage). Posterior Femoral Resection: Posterior Medial 5 mm(cartilage worn), Posterior Lateral 7 mm. Target thickness of 7mm Unworn, 5mm Worn (No Cartilage). Description of Procedure General anesthesia was administered. A well-padded tourniquet was placed high on the thigh. The limb was prepped and draped in the usual sterile fashion. The limb was exsanguinated and the tourniquet inflated to 300 mmHg. A longitudinal incision was created over the midline of the knee. Sharp dissection was taken through subcutaneous tissues. Electrocautery was used for hemostasis. A trivector approach to the knee joint was performed. The ACL, anterior horns of the menisci, and fat pad were excised, and a subperiosteal dissection was carried along the posterior medial border of the tibia. The thickness of the [place] patella was measured with a caliper. The patella was resected using the oscillating saw. The best fitting anatomic patella button was selected. The fixation holes were drilled. When the patella and patella buttons combined thickness was thicker than the [place] patella, the patella was recut. Starting midway between the top of the notch in the anterior femoral cortex, I drilled a 9 mm diameter hole parallel to the anterior cortex to minimize flexion of the femoral component and promote patella tracking. I verified the existence of a 5-10 mm bone bridge between the posterior aspect of the hole and the anterior limit of the intercondylar notch. An intraosseous positioning karyna was inserted 10 cm into the femur perpendicular to the distal joint line and parallel to the anterior cortex. I used a distal femoral referencing guide that compensated 2 mm when the cartilage was worn on the distal medial femoral condyle, and 2 mm when the cartilage was worn on the distal lateral femoral condyle. The basis for setting the distal and posterior femoral resection guide is knowing that the varus and valgus grade II to IV Kellegren-Socrates osteoarthritic knees have negligible bone wear at 0? and 90? and that the mean full-thickness cartilage wear approximates 2 mm. I measured the thickness of distal femoral resections with a caliper to +/- 0.5 mm. The thickness of each resection was adjusted to match the thickness of the respective condyle of the femoral component within 0.5 mm of target after compensating for cartilage wear and kerf. When the distal resection was 1-2 mm too thin, a recut guide was used to adjust the cut. When the distal resection was too thick, a 1 or 2 mm thick washer was fixed to the back of the 4-in-1 chamfer block to ramin a corrective gap between the femoral component and distal femur. I set posterior femoral referencing guide at 0? orientation to position the pin holes for the 4 in 1 chamfer block. The tonja wing measured the width of the distal femoral resection and selected the size of the 4 in 1 chamfer block and femoral component. The AP sizer confirmed the size. I measured the thickness of the posterior femoral resections with a caliper before making the anterior and chamfer cuts. I adjusted the thicknesses of each resection to match the thickness of the respective condyle of the femoral component within +/-0.5 mm after compensating for cartilage wear and curve. When a posterior resection femoral resection was 1-2 mm too thick or thin a corrective correction was made by shifting or rotating the 4 in 1 chamfer block as needed. The chamfer block was secured in the correct position with compression screws. The anterior and chamfer femoral resections were made. These caliper measurements and corrections verified that the femoral component was set coincident with the patient's pre-arthritic distal and posterior femoral joint lines. I removed all the medial and lateral femoral and tibial osteophytes to restore the pre arthritic length of the medial and lateral collateral ligaments. I leandra AP lines along the major axis of the lateral tibial plateau in between the tibial spines which identified the flexion extension plane of the knee. A conventional extramedullary tibial resection guide was applied to the ankle. An tonja wing was placed medially in the saw slot. The varus valgus angle of the tibial resection guide was adjusted until the guide paralleled the proximal tibial articular surface after compensating for cartilage and bone wear. The slope of flexion extension angle of the tibial resection guide was adjusted until the tonja wing paralleled the slope of the medial tibia after compensating for wear. The AP axis of the tibial resection guide was adjusted parallel to the two lines. The proximal tibia was resected, partially releasing the insertion of the posterior cruciate ligament. The thickness of the medial and lateral lateral tibial condyle was measured at the base of the tibial spines. I visually verified the slope of the medial border of the resection was parallel to the patient's pre arthritic slope after compensating for cartilage and bone wear. I removed the remnants of the posterior horns of the menisci and posterior osteophytes and cauterized the inferior lateral genicular vessels. The Aquamantys bipolar device was also used to for additional hemostasis. When the knee had a preoperative flexion contracture of 20? or more I teased the capsule off the posterior femur with a curved 3 quarter-inch osteotome. I administered the posterior femoral periosteal injection by delivering 10 cc using a 20 gauge spinal needle at the most medial and 10 cc at the most lateral femoral spur surface which reduced the risk of injury to the posterior neurovascular structures. I followed 6 options in a decision tree to fine tune the varus valgus and posterior slope orientation of the tibial component to restore the patient's pre arthritic tibial joint line and limb alignment. First, I adjusted the varus-valgus orientation of the proximal tibia resection working in 1 degree to 2 degree increments until there was negligible medial and lateral lift off of the distal femoral and proximal tibial resection from the spacer block during a varus valgus laxity assessment in extension. I selected the largest anatomic shape trial tibial base plate that fit within the cortical boundary of the proximal tibial resection. The base plate was best fit parallel to the cortical boundary which set the Internal-external orientation of the anterior to posterior and medial to lateral positions. The best fit method set the AP axis of the tibial base plate and insert parallel to the flexion extension plane of the pre arthritic knee. I pinned the trial tibial base plate, prepared the cruciate slot, and fixed the base plate to the tibia with the cruciate stem. I inserted the trial femoral component. The knee was placed in full extension. Varus valgus laxity is of the knee with trial components were assessed. When asymmetric laxity was observed a 1-2 degree varus or valgus recut guide was used to fine tune the tibial resection until the laxity was 1 degree or less in full extension like the [place] knee. The following steps determined the optimal insert thickness within +/-1 mm. First I inserted an insert goniometer that matched the thickness of the spacer block. I reduced the patella and then with the knee in maximum extension, I verified the knee hyperextended a few degrees and had negligible varus valgus laxity, like the pre arthritic knee. Next, I measured the external tibial orientation which was the angle the insert goniometer intersected the sagittal line on the medial condyle of the femoral trial component. Then with the knee in 15-30 degrees flexion I verified a 3-4 mm gap in the lateral compartment and no gap in the medial compartment during a 2nd varus valgus laxity test. Next, I placed the knee in 90? of flexion and the foot resting on the operating table and measured the internal tibial orientation. I repeated the steps until I identified the insert thickness that provided the highest external tibia orientation in extension and the highest internal tibial orientation at 90? flexion without anterior lift-off of the insert from the tibial base plate. The insert with this thickness was implanted. I applied a posterior drawer test with the tibia distracted by gravity and verified no posterior subluxation of the tibia relative to the femur. The patella remained centered on the trochlea and tracked well throughout the entire arc of flexion and extension. I used pulse lavage to clean the bony surfaces of debris and dried bone. I cemented the tibial, femoral, and patellar components using 1 bag of methylmethacrylate with Gentamycin, then rechecked the stability at full extension, 15-30 degrees, and 90? flexion and verified scientology of the entire arc of motion of the knee. The circulating nurse confirmed the sponge and needle counts were correct. I used pulse lavage to rinse the joint and wound. The extensor mechanism was closed with interrupted #1 Vicryl suture and #1 running Stratafix suture. The subcutaneous layer was closed with interrupted #1 Vicryl suture followed by 2-0 Stratafix and 3-0 Stratafix. Steri-Strips placed on the skin. Silver impregnated occlusive dressing applied to the wound. A light gauze wrap and Gabe bandage were placed. The patient was transferred to the recovery room in stable condition. There were no complications. Implants Medacta K spheriKA Femoral component SpheriKA size 5+, tibial component size 5, vitamin-E flex insert, thickness 10mm, Anatomic patella implant size 4. Estimated Blood Loss 100 Drains No Pathology None sent Complications No immediate complications Condition Stable Disposition PACU [facility] Billing Surgery - Charge Forward: Surgery Billing
[2024-07-25] MEDS: fentaNYL CITRATE INJ (*CRX) 100 MCG/2 ML VIAL 25 MCG IV PUSH ×2 (10:30→11:07)
[2024-07-25] MEDS: ONDANSETRON INJ 4 MG/2 ML VIAL IV PUSH (10:40)
[2024-07-25] MEDS: diphenhydrAMINE HCl INJ 50 MG/ML VIAL 12.5 MG IV PUSH (11:25)
[2024-07-25] MEDS: oxyCODONE HCL (*CRX) 5 MG TAB IR PO (12:41)
--- NOTE | 2024-07-25 12:46 | SUR.PHASEII ---
1246 pt is stable and doing well, disconnected from monitor to work with PT.
--- NOTE | 2024-07-25 13:20 | SUR.PHASEII ---
1320, Pt finished working with PT, waiting for OT. Pt placed back on vitals monitor.
--- NOTE | 2024-07-25 14:04 | SUR.PHASEII ---
1404 pt is off vitals monitor to work with OT.
== END 2024-07-25 14:55 | disposition home or self-care (01) ==
PROVIDERS: Visit Provider Orthopaedic Surgery
PROC: (CPT 27447; principal; 2024-07-25 07:30)
DX: M17.12 Unilateral primary osteoarthritis, left knee (principal); M25.762 Osteophyte, left knee; I10 Essential (primary) hypertension; E78.00 Pure hypercholesterolemia, unspecified; E66.9 Obesity, unspecified; Z68.31 Body mass index [BMI] 31.0-31.9, adult; Z79.82 Long term (current) use of aspirin; Z98.890 Other specified postprocedural states; Z96.651 Presence of right artificial knee joint; Z87.891 Personal history of nicotine dependence; Z80.9 Family history of malignant neoplasm, unspecified
CPT/HCPCS: 27447; 36415; 73560; 86850; 86900; 86901; 97110; 97161; 97165; C1776; A9270; C1713; J0171; J0690; J1100; J1200; J1885; J2270; J2405; J2704; J2795; J3010; J7120

== ENCOUNTER 2024-08-16 08:32 | Outpatient (CLI) | payer MEDICARE, SELFPAY ==
--- NOTE | ~2024-08-16 | XR_ITS ---
Left Knee Technique: AP, lateral, and sunrise views were obtained. Clinical History: Arthroplasty Findings: No fracture or dislocation is seen. Left knee arthroplasty in place. No hardware complicati on is evident. Soft tissues are unremarkable. No joint effusion is seen. Impression: No acute abnormality. Left knee arthroplasty in place. Reviewed, dictated and finalized at location M. Impression: No acute abnormality. Left knee arthroplasty in place.
--- OUTSIDE RECORDS SUMMARY | 2024-08-16 08:59 | XMS_ITS | Referral Summary ---
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
--- OUTSIDE RECORDS SUMMARY | 2024-08-16 08:59 | XMS_ITS | Clinical Summary ---
Author Organization [facility] Address [address] [place] [address] Phone Care Team Providers Care Trans Router Name Role Phone Omar Encinas MD Primary [...] Screening 1945 TdaP Immunization 1945 Pneumococcal Immunization (50+ years) (1 of 1 - PCV) 1996 Zoster Immunization (1 of 2) 1996 Respiratory Syncytial Virus (RSV) Immunization (Adult) (1 - 1-dose 75+ series) 2021 Influenza Immunization (#1) 01/30/202403/31, 04/12/2019, 04/12/2019, Additional history exists SARS-COV-2 Immunization ( season) 2024 07/01/2020, 06/10/2020 Hepatitis B Immunization Aged Out No longer eligible based on patient's age to complete this topic Meningococcal Immunization (ACWY) Aged Out No longer eligible based on patient's age to complete this topic Rotavirus Immunization Aged Out No lo nger eligible based on patient's age to complete this topic Insurance MEDICARE Care Teams Trans Router Relationship Specialty Start Date End Date Omar Encinas MD PCP - General General Surgery 08/11/19
--- OUTSIDE RECORDS SUMMARY | 2024-08-16 08:59 | XMS_ITS | Clinical Summary ---
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
== END 2024-08-16 08:33 | disposition home or self-care (01) ==
PROVIDERS: Visit Provider Orthopaedic Surgery
DX: Z96.652 Presence of left artificial knee joint (principal)
CPT/HCPCS: 73562